=== PATIENT | female | born 1955 | race American Indian/Alaskan Native ===

== ENCOUNTER 2018-05-03 05:22 | Emergency (ER) | payer SELFPAY ==
[2018-05-03] MEDS ORDERED: MOTRIN PO ONE ×2 (06:43→06:48)
--- NOTE | 2018-05-03 08:15 | Emergency Department Report ---
ED ENT HPI - General Chief complaint: Sore Throat Stated complaint: SWOLLEN GLANDS SORE THROAT Time Seen by Provider: 05/03/18 08:09 Source: patient Mode of arrival: Ambulatory Limitations: No Limitations - History of Present Illness Initial comments: This is a 62-year-old female here report that she had sore throat for 2 weeks facial pain and bilateral earache without any coughing or respiratory distress. She says she has pain on both sides of her neck and a friend. Sore throat is 10/10 and earache is 5/10. Sore throat is worse with swallowing. Denies any drooling, nausea or vomiting. Denies any abdominal pain. Denies any chest pain or shortness of breath. She says she took [id number] medication but it is not helping. MD complaint: sore throat, ear pain Onset/Timin -: week(s) Location: R ear, L ear, throat Severity: severe Severity scale (0 -10): 10 Quality: aching, constant Consistency: constant Improves with: none Worsens with: swallowing, eating Context- Dental: other (unknown) Context- Ear: other (unknown) Associated Symptoms: fever, pain with swallowing, sore throat. denies: cough, gum swelling, toothache, tinnitus, hearing loss, discharge from ear, rhinorrhea - Related Data Previous Rx's Medication Instructions Recorded Last Taken Type Famotidine [Pepcid] 20 mg PO BID #40 tablet 03/19/16 Unknown Rx Prednisone [predniSONE 10 mg 10 mg PO .TAPER #1 tab.ds.pk 03/19/16 Unknown Rx (6-Day Pack, 21 Tabs)] hydrOXYzine HCL [Atarax] 25 mg PO Q6HR PRN #30 tablet 03/19/16 Unknown Rx Clindamycin [Clindamycin CAP] 300 mg PO Q8H 10 Days #30 cap 05/03/18 Unknown Rx Ibuprofen [Motrin] 600 mg PO Q8H PRN #12 tablet 05/03/18 Unknown Rx Allergies Allergy/AdvReac Type Severity Reaction Status Date / Time No Known Allergies Allergy Verified 03/19/16 05:12 ED Dental HPI - General Chief complaint: Sore Throat Stated complaint: SWOLLEN GLANDS SORE THROAT Time Seen by Provider: 05/03/18 08:09 Source: patient Mode of arrival: Ambulatory Limitations: No Limitations - Related Data Previous Rx's Medication Instructions Recorded Last Taken Type Famotidine [Pepcid] 20 mg PO BID #40 tablet 03/19/16 Unknown Rx Prednisone [predniSONE 10 mg 10 mg PO .TAPER #1 tab.ds.pk 03/19/16 Unknown Rx (6-Day Pack, 21 Tabs)] hydrOXYzine HCL [Atarax] 25 mg PO Q6HR PRN #30 tablet 03/19/16 Unknown Rx Clindamycin [Clindamycin CAP] 300 mg PO Q8H 10 Days #30 cap 05/03/18 Unknown Rx Ibuprofen [Motrin] 600 mg PO Q8H PRN #12 tablet 05/03/18 Unknown Rx Allergies Allergy/AdvReac Type Severity Reaction Status Date / Time No Known Allergies Allergy Verified 03/19/16 05:12 ED Review of Systems ROS: Stated complaint: SWOLLEN GLANDS SORE THROAT Other details as noted in HPI Constitutional: chills. denies: fever Eyes: denies: eye pain, eye discharge, vision change ENT: ear pain, throat pain. denies: dental pain, hearing loss, epistaxis, congestion Respiratory: denies: cough, shortness of breath, SOB with exertion, SOB at rest , stridor, wheezing Cardiovascular: denies: chest pain, palpitations, edema, syncope Gastrointestinal: denies: abdominal pain, nausea, vomiting, diarrhea Genitourinary: denies: urgency, dysuria, discharge Musculoskeletal: denies: back pain, joint swelling, arthralgia, myalgia Skin: denies: rash, lesions Neurological: denies: headache, weakness, paresthesias ED Past Medical Hx - Past Medical History Previous Medical History?: Yes Hx Hypertension: Yes - Surgical History Past Surgical History?: Yes Hx Appendectomy: Yes Additional Surgical History: Rt Knee - Social History Smoking Status: Current Some Day Smoker Substance Use Type: None - Medications Home Medications: Home Medications Medication Instructions Recorded Confirmed Last Taken Type Famotidine [Pepcid] 20 mg PO BID #40 tablet 03/19/16 Unknown Rx Prednisone [predniSONE 10 mg 10 mg PO .TAPER #1 tab.ds.pk 03/19/16 Unknown Rx (6-Day Pack, 21 Tabs)] hydrOXYzine HCL [Atarax] 25 mg PO Q6HR PRN #30 tablet 03/19/16 Unknown Rx Clindamycin [Clindamycin CAP] 300 mg PO Q8H 10 Days #30 cap 05/03/18 Unknown Rx Ibuprofen [Motrin] 600 mg PO Q8H PRN #12 tablet 05/03/18 Unknown Rx ED Physical Exam - General Limitations: No Limitations General appearance: alert, in no apparent distress - Head Head exam: Present: atraumatic, normocephalic, normal inspection - Eye Eye exam: Present: normal appearance, PERRL, EOMI. Absent: periorbital swelling , periorbital tenderness Pupils: Present: normal accommodation - ENT ENT exam: Present: mucous membranes moist, TM's normal bilaterally, normal external ear exam, other (bilateral nasal mucosa normal exam and no maxillary or frontal sinus tenderness.). Absent: normal exam, normal orophraynx (patient with swelling to oropharynx and exudates. Uvula is midline and oral airways patent) - Neck Neck exam: Present: normal inspection, tenderness (anterior neck), full ROM, lymphadenopathy (anterior neck), other (C-spine tenderness). Absent: meningismus, thyromegaly - Respiratory Respiratory exam: Present: normal lung sounds bilaterally. Absent: respiratory distress, chest wall tenderness - Cardiovascular Cardiovascular Exam: Present: regular rate, normal rhythm, normal heart sounds. Absent: systolic murmur, diastolic murmur - GI/Abdominal GI/Abdominal exam: Present: soft, normal bowel sounds. Absent: distended, tenderness, guarding, rebound, rigid, organomegaly, mass - Extremities Exam Extremities exam: Present: normal inspection, full ROM, normal capillary refill , other (No cce. + 2 pulses in all extremities, no neurovascular compromise). Absent: tenderness, pedal edema, joint swelling, calf tenderness - Back Exam Back exam: Present: normal inspection, full ROM, other (ambulates without any difficulties). Absent: tenderness, CVA tenderness (R), CVA tenderness (L), muscle spasm, paraspinal tenderness, vertebral tenderness, rash noted - Neurological Exam Neurological exam: Present: alert, oriented X3, normal gait - Psychiatric Psychiatric exam: Present: normal affect, normal mood - Skin Skin exam: Present: warm, dry, intact, normal color. Absent: rash ED Course Vital Signs 05/03/18 06:37 Temperature 99.3 F Pulse Rate 90 Respiratory 16 Rate Blood Pressure 164/90 O2 Sat by Pulse 100 Oximetry - Reevaluation(s) Reevaluation #1: 05/03/18 08:58 Patient given Motrin 800 mg by mouth for pain and sore throats which helped her pain. She is able to tolerate fluids without any difficulties ED Medical Decision Making - Medical Decision Making This is a 62-year-old patient with 2 weeks history of sore throat, neck pain and bilateral earache. She is here for evaluation Pt seen and evaluated by myself and physical findings for normal exam except exudative pharyngitis with anterior cervical lymphadenopathy. Bilateral ear normal exam. Based on [facility] criteria with absence of cough, presence of exudate on oropharynx, fever, enlarged lymph nodes patient with exudative pharyngitis. I discussed diagnosis and treatment plan the patient and she was understanding. She received Motrin 800 mg when necessary emergency room which relieved her pain. Patient discharged home in stable condition. Vital signs are stable she is afebrile and pain is controlled. Discharged home with prescription for clindamycin and Motrin and to follow up with her primary care in 2 days. She voiced understanding Critical care attestation.: If time is entered above; I have spent that time in minutes in the direct care of this critically ill patient, excluding procedure time. ED Disposition Clinical Impression: Exudative pharyngitis, Earache symptoms in both ears Fever Qualifiers: Fever type: unspecified Qualified Code(s): R50.9 - Fever, unspecified Disposition: DC-01 TO HOME OR SELFCARE Is pt being admited?: No Does the pt Need Aspirin: No Condition: Stable Instructions: Strep Throat (ED) Additional Instructions: Gargle with warm saltwater 3 times a day Motrin is prescribed for sore throat and/or fever Follow-up with primary care physician in 2 days if he do not have a primary care physician he can follow up at [facility] Increase her fluid intake Take clindamycin 3 times a day as prescribed. Please return to emergency room, if your symptoms worsen otherwise follow-up with your PCP in 2 days. Referrals: PRIMARY CARE [Primary Care Provider] - 05/05/18 [facility] [Outside] - 05/05/18 Forms: Work/School Release Form(ED)
[2018-05-03 09:12] VITALS: BP 160/90
== END 2018-05-03 09:11 | disposition home or self-care (01) ==
LOC: ED 05:22
DX: J02.9 Acute pharyngitis, unspecified (principal); I10 Essential (primary) hypertension; F17.200 Nicotine dependence, unspecified, uncomplicated; Z90.89 Acquired absence of other organs
CPT/HCPCS: 99282